=== PATIENT | female | born 1940 | race Caucasian/White ===

== ENCOUNTER 2023-05-14 07:47 | Day surgery (SDC) | payer MEDICARE, BC ==
[2023-05-07 11:48] LABS: BASOPHILS # (AUTO) 0.1 X10'3 (0-0.2); BASOPHILS % (AUTO) 0.7 % (0-1); EOSINOPHILS # (AUTO) 0.6 X10'3 (0-0.9); LYMPHOCYTES # (AUTO) 1.4 X10'3 (1.1-4.8); LYMPHOCYTES % (AUTO) 17.7 % (21-51); MEAN CORPUSCULAR HEMOGLOBIN 30.1 PG (27.0-31.0); MEAN CORPUSCULAR HGB CONC 33.1 g/dL (33.0-36.5); MEAN CORPUSCULAR VOLUME 90.9 FL (78-98); MEAN PLATELET VOLUME 9.4 FL (7.4-10.4); MONOCYTES # (AUTO) 0.7 X10'3 (0-0.9); MONOCYTES % (AUTO) 8.6 % (2-12); NEUTROPHILS # (AUTO) 5.4 X10'3 (1.8-7.7); PRE OP HEMATOCRIT 43.3 % (35.0-45.0); PRE OP HEMOGLOBIN 14.3 g/dL (12.0-16.0); PRE OP PLATELET COUNT 308 X10'3 (140-440); PRE OP WHITE BLOOD COUNT 8.1 10'3 (4.8-10.8); RED BLOOD COUNT 4.76 X10'6 (4.20-5.60); RED CELL DISTRIBUTION WIDTH 13.7 % (11.5-14.5)
[2023-05-07 12:07] LABS: ALBUMIN 3.9 G/DL (3.4-5.0); ALBUMIN/GLOBULIN RATIO 1.1 (1.1-1.5); ALKALINE PHOSPHATASE 72 IU/L (46-116); BLOOD UREA NITROGEN 21 MG/DL (7-18); BUN/CREATININE RATIO 26.9 (10.0-20.0); CALCIUM 9.4 MG/DL (8.5-10.1); CHLORIDE 103 MMOL/L (99-107); CREATININE 0.78 MG/DL (0.40-0.90); PRE OP ALT 21 U/L (30-65); PRE OP ANION GAP 10 (8-16); PRE OP AST 18 U/L (10-37); PRE OP BILIRUB, TOTAL 0.6 MG/DL (0.0-1.0); PRE OP GLUCOSE 138 MG/DL (70-104); PRE OP SODIUM 142 MMOL/L (135-145); TOTAL CARBON DIOXIDE 29.3 MMOL/L (24-32); TOTAL PROTEIN 7.4 G/DL (6.4-8.2); eGFR 71 ML/MIN
[2023-05-07 12:36] LABS: PRE OP POTASSIUM 2.9 MMOL/L (3.4-5.1)
[~2023-05-14] VITALS: Ht 168.9 cm; Wt 70.3 kg
[2023-05-14] VITALS (21 sets, daily range): BP systolic 126–195; BP diastolic 45–106; PULSE 71–88; RESP 11–19; TEMP 97.7; O2SAT 90–99
[~2023-05-14 07:47] MED LIST: ESTRADIOL; HYDR50TA4 PO; INDOCYANINE GREEN 25 MG/10 ML VIAL IV ONE; LEVO100T PO; famotidine 20mg tablet PO ONE; ringers solution, lacted 1,000 ML IV SCH; vancomycin/NS 1 GM in NS 250 ML IV ONE
[2023-05-14 08:58] LABS: ISTAT CREATININE 0.8 mg/dL (0.6-1.1); ISTAT HGB 14.6 g/dl (12.0-16.0); ISTAT IONIZED CALCIUM 1.23 mmol/L (1.03-1.32); ISTAT K 3.7 mmol/L (3.5-5.1)
[2023-05-14] MEDS ORDERED: BUPIVAcaine/PF 2.5 mg/ml (0.25%) 30ml vial ONE (10:34)
[2023-05-14] MEDS ORDERED: LIDOcaine 1% (10mg/ml)w/preservative inj. 20ml MDV ONE (10:35)
[2023-05-14] MEDS ORDERED: scopolamine 1mg/72 hr patch TD ONE (10:36)
[2023-05-14] MEDS ORDERED: fentaNYL /PF 50mcg/ml 5ml ampule ONE (10:43)
[2023-05-14] MEDS ORDERED: midazolam 1 mg/ML 2ml injection ONE (10:43)
[2023-05-14] MEDS ORDERED: acetaminophen 1,000mg/100ml IV 100 ML IV PRN (10:50)
[2023-05-14] MEDS ORDERED: labetalol 20mg/4ml (5mg/ml) syringe IV PRN (10:50)
[2023-05-14] MEDS ORDERED: proCHLORperazine 10 MG/2 ml inj IV PRN (10:50)
[2023-05-14] MEDS ORDERED: meperidine/PF 25mg/ml syringe IV PRN ×3 (10:50)
[2023-05-14] MEDS ORDERED: hydrALAZINE 20mg/ml inj. IV PRN (10:50)
[2023-05-14] MEDS ORDERED: morphine 2 MG/ML inj. syringe IV PRN (10:50)
[2023-05-14] MEDS ORDERED: morphine 4 MG/ML inj SYRINge IV PRN (10:50)
[2023-05-14] MEDS ORDERED: ondansetron/PF 4mg/2ml inj IV PRN (10:50)
[2023-05-14] MEDS ORDERED: ringers solution, lacted 1,000 ML IV SCH (10:50)
[2023-05-14] MEDS ORDERED: propofol inj 20 ML IV ONE (11:16)
[2023-05-14] MEDS ORDERED: ondansetron/PF 4mg/2ml inj ONE (11:16)
[2023-05-14] MEDS ORDERED: dexamethasone sod phosphate 4mg/ml inj. ONE (11:16)
[2023-05-14] MEDS ORDERED: rocuronium 10mg/ml inj IV ONE (11:16)
[2023-05-14] MEDS ORDERED: LIDOcaine 2% (20mg/ml) 5ml vial ONE (11:16)
--- NOTE | 2023-05-14 11:34 | NUR ---
ANESTHESIA ORDERED SCOPOLAMINE PATCH AFTER EXITING ROOM AND INTERVIEWING PT. PRIMARY RN ON BREAK. PATCH PLACED BEHIND PT'S LEFT EAR. PT INSTRUCTED ON CARE AFTER DISCHARGE, INSTRUCTION SHEET PLACED IN CHART FOR DISCHARGE. PT STATES SHE HAS USE THEM IN THE PAST AFTER SURGERY AND HAS WORKED WELL. INFORMED PACU IN REGARDS TO DISCHARGE SHEET.
[2023-05-14] MEDS ORDERED: ondansetron 4mg rapidly disintigrating tab PO ONE (12:30)
[2023-05-14] MEDS ORDERED: traMADol 50MG tablet PO PRN (12:30)
[2023-05-14] MEDS ORDERED: glycopyrrolate 0.2mg/ml inj ONE (12:47)
[2023-05-14] MEDS ORDERED: neostigmine methylsulfate 1 MG/ML 10ml vial ONE (12:47)
--- NOTE | 2023-05-14 13:06 | NUR ---
Received from OR via [facility], accompanied by Anesthesiologist DR BARNARD and report given by Anesthesiologist AND SKIING TEACHER. PT VERY DROWSY, DENIES PAIN, ABDOMEN W/4 LAP SITES W/BANDAIDS CDI. Addendum: 05/14/23 at 1335 by Deepti Smith RN Amended: Links added.
--- NOTE | 2023-05-14 16:56 | NUR ---
PT UP FOR VOID W/ASSIST X 3, PT DECLINED PAIN MEDICATION. PT STILL HAS NAUSEA BUT IT HAS LET UP SOME. D/C INSTRUCTIONS GIVEN AND GONE OVER W/PT AND PTS WHO VERBALIZED UNDERSTANDING. PT D/CD TO HOME VIA W/C TO PRIVATE VEHICLE W/O INCIDENT. Addendum: 05/14/23 at 1720 by Deepti Smith RN Amended: Links added.
== END 2023-05-14 16:56 | disposition home or self-care (01) ==
LOC: PAS 07:47
PROVIDERS: ATTEND Surgery
DX: K80.10 Calculus of gallbladder with chronic cholecystitis without obstruction (principal); I10 Essential (primary) hypertension; E03.9 Hypothyroidism, unspecified; Z90.710 Acquired absence of both cervix and uterus; Z98.890 Other specified postprocedural states; Z79.899 Other long term (current) drug therapy; Z88.0 Allergy status to penicillin; Z88.1 Allergy status to other antibiotic agents; Z88.8 Allergy status to other drugs, medicaments and biological substances; Z88.2 Allergy status to sulfonamides; Z83.3 Family history of diabetes mellitus; Z82.3 Family history of stroke; Z82.49 Family history of ischemic heart disease and other diseases of the circulatory system; Z80.1 Family history of malignant neoplasm of trachea, bronchus and lung
CPT/HCPCS: 36415; 47563; 49592; 74018; 80047; 80053; 85025; 93005; J0131; J1100; J2250; J2270; J2405; J2704; J2710; J3010; J3370; J3490; J7030; J7120; Z7506; Z7508; Z7512; 88304; A4215; A4618; A7000